=== PATIENT | male | born 1950 | race Caucasian/White ===

== ENCOUNTER → 2016-05-19 | Day surgery (SDC) | payer OTHER ==
[~2016-05-19] VITALS: Ht 177.8 cm; Wt 90.4 kg
[~2016-05-19] MED LIST: *ENALAPRILAT 1.25 MG/ML VIAL PERIprocedural Use ONLY ONE; *LABETALOL HCL 100 MG/20 ML VIAL PERIprocedural Use ONLY ONE; *morphine SULFATE 8 MG/ML PERIprocedure ONLY ONE; ASPI1TAB69 PO; ASPIRIN EC 81 MG TABEC PO SCH; ATOR20TA15 PO; ATROPINE SULFATE 1 MG/ML VIAL IV PUSH PRN; CEPH500C PO; CILO100T PO; CLOPIDOGREL 300 MG TAB PO ONE; CLOPIDOGREL 75 MG TAB PO SCH; CYCL1TAB29 PO; DO NOT ADM ANY ANTICOAGULANT DRUGS XX PRN; ENALAPRILAT 1.25 MG/ML VIAL IV PRN; FAMOTIDINE 20 MG/2 ML VIAL ONE; FISH1000 PO; GABA300C5 PO; HEPARIN SODIUM - IV 10,000 UNITS/10 ML VIAL ONE; HOLD GLUCOPHAGE, GLUCOPHAGE XR, AND AVANDAMET XX PRN; INSULIN HUMAN REGULAR 1,000 UNITS/10 ML VIAL SQ PRN; IOHEXOL 300 MG/ML 50 ML BTL (for RAD DIAG) ONE; LABETALOL HCL 100 MG/20 ML VIAL IVP PRN; LACTATED RINGER'S 1000 ML IV SCH; LIDOCAINE HCL 1% 50 ML VIAL INFIL PRN; LISI40TA PO; LISINOPRIL 20 MG TAB PO ONE; LORazepam 2 MG/ML VIAL IVP PRN; METF500T PO; METOCLOPRAMIDE HCL 10 MG/2 ML VIAL IVS PRN; METOPROLOL TARTRATE 25 MG TAB PO PRN; MIDAZOLAM HCL 2 MG/2 ML VIAL ONE; MULTTAB67 PO; ONDANSETRON HCL 4 MG/2 ML VIAL IV PRN; POTASSIUM CHLORIDE 20 MEQ CONTROLLED RELEASE TAB PO PRN; PROPOFOL 200 MG/20 ML AMP IV ONE; PROTAMINE SULFATE 50 MG/5 ML VIAL ONE; SODIUM CHLOR 0.9% 250 ML IV PRN; SODIUM CHLORID 0.9% 500 ML INJ 500 ML IV ONE; SODIUM CHLORID 0.9% 500 ML IV SCH; SODIUM CHLORIDE 0.9% 1000 ML @ 125 ML/HR IV SCH; SODIUM CHLORIDE 5 ML FLUSH BID IVF SCH; SODIUM CHLORIDE 5 ML FLUSH PRN IVF; SODIUM NITROPRUSSIDE 50 MG/250 ML D5W IV SCH; UMEC1AER INH; ceFAZolin 1,000 MG/NS 100 ML IV SCH; cloNIDine HCL 0.1 MG TAB PO PRN; oxyCODONE/ACETAMINOPHEN 5 MG/325 MG TAB PO PRN
[2016-05-19 06:33] VITALS: BP 171/85; PULSE 80; RESP 20; TEMP 97.7; O2SAT 94
[2016-05-19 06:42] LABS: AUTOMATED NEUTROPHIL # 6.8 TH/MM3 (1.8-7.7); BASOPHIL # 0.1 TH/MM3 (0-0.2); BASOPHIL % 0.9 % (0.0-2.0); EOSINOPHIL % 8.6 % (0.0-4.0); HEMATOCRIT 37.8 % (39.0-51.0); HEMO FLAGS DIFF FINAL; LYMPH % 20.3 % (9.0-44.0); LYMPHOCYTE # 2.4 TH/MM3 (1.0-4.8); MEAN CELL VOLUME 98.7 FL (80.0-100.0); MEAN CORPUSCULAR HEMOGLOBIN 33.5 PG (27.0-34.0); MEAN CORPUSCULAR HGB CONC 33.9 % (32.0-36.0); MONO % 13.5 % (0.0-8.0); NEUT % 56.7 % (16.0-70.0); PLATELET COUNT 517 TH/MM3 (150-450); RED BLOOD COUNT 3.84 MIL/MM3 (4.50-5.90); RED CELL DISTRIBUTION WIDTH 12.6 % (11.6-17.2)
[2016-05-19 06:44] LABS: INTERNATIONAL NORMALIZED RATIO 0.9 RATIO
[2016-05-19 06:54] LABS: BICARBONATE 21.3 MEQ/L (21.0-32.0); POTASSIUM 4.2 MEQ/L (3.5-5.1)
[2016-05-19] MEDS: HEPARIN SODIUM - SQ 10,000 UNITS/ML VIAL ONE ×2 (09:09→09:26)
[2016-05-19] MEDS: BUPIVACAINE/EPINEPHRINE 0.5% 50 ML VIAL ONE ×2 (09:09→09:25)
[2016-05-19 17:00] VITALS: TEMP 97.6
[2016-05-19 17:35] VITALS: BP 178/71; PULSE 69; RESP 20; O2SAT 94
--- NOTE | 2016-05-19 20:54 | EKG ---
Date Performed: 05/19/2016 Time Performed: 06:58:03 PTAGE: 66 years EKG: Sinus rhythm WITH SINUS ARRHYTHMIA NORMAL ECG NO PREVIOUS TRACING DOCTOR: Mason Gutierrez Interpretating Date/Time 05/19/2016 20:52:47
--- NOTE | 2016-05-24 20:21 | MP ---
cc: MARIN VOGEL D.O., JAMES DATE OF SURGERY: 05/19/2016. PREOPERATIVE DIAGNOSIS: Severely disabling bilateral lower extremity ischemia. POSTOPERATIVE DIAGNOSIS: Severely disabling bilateral lower extremity ischemia. OPERATIVE PROCEDURE PERFORMED: 1. C02 angiogram. 2. Right external iliac percutaneous balloon angioplasty and stent placement. SURGEON: Deshawn Modi M.D. HOME CARE ASSOCIATE: RUI Montesinos. ANESTHESIA: Local MAC DESCRIPTION OF THE PROCEDURE: With the patient in the supine position and under IV sedation the lower abdomen, both groins and thighs were prepped with Betadine and draped in a sterile fashion. One gram of Ancef was administered intravenously, and following a protocol time-out, the skin and subcutaneous tissue directly overlying proposed right common femoral access site was infiltrated with 0.5% Marcaine with epinephrine. Utilizing ultrasound guidance, an 18 gauge needle was guided into the right mid common femoral lumen, retrograde approach. A J-wire was navigated under fluoroscopic guidance into the iliac artery. A 5-Taiwanese hemostatic sheath was deployed over the J-wire. Utilizing CO2 as contrast injected through the sheath side-arm in conjunction with digital C-arm fluoroscopic imaging, angiographic evaluation was accomplished. 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 An Advantage guidewire/Quick-Cross catheter combination was successfully, intraluminally navigated through the external iliac occlusion and the guidewire and catheter negotiated into the subrenal aorta. Flush aortogram revealed wide patency of the right common iliac artery with complete occlusion of the external iliac at its origin. The occlusion extended approximately 60 mm distally. The internal iliac remained patent with moderate disease distal to its bifurcation. Also noted was a flush occlusion of the left common iliac artery at its origin. The left external and internal iliac arteries did not reconstitute but faint collateralization of the common femoral was apparent. The right external iliac occlusion was predilated with a 6 x 60 mm balloon inflated to 8 atmospheres. This was followed by deployment of an 8 x 60 mm self-expanding Medtronic stent which was postdilated with an 8 x 60 mm balloon. Completion angiogram revealed wide patency of the right iliac system with no significant residual stenosis. At this point, angiographic evaluation of the right infrainguinal area was completed. This revealed no significant disease within the right superficial femoral artery, popliteal or tibial vessels. No attempt was made to endovascularly revascularize the TAS C-V left iliac occlusion. Instead, my plan is to return the patient for open exposure of the left common femoral artery at which time a brief attempt will be made to retrogradely cross the left iliac occlusion. I doubt this will be successful and if it is unsuccessful, we will plan on concomitant [id number] femoral-femoral bypass. The patient returned to the recovery room in stable condition. It should be noted that during the procedure, the 5-Taiwanese hemostatic sheath was exchanged for a 6-Taiwanese right-tip sheath. At the conclusion of procedure, the 6-Taiwanese sheath was secured with a skin suture and left in place. Also, it should be noted that prior to the balloon angioplasty of the right iliac occlusion, the patient received heparin, 5000 units and ACT measured above 250. Heparin was not reversed at the conclusion of procedure. MD CONOR Castañeda/SILVIA /4:15 PM /8:12 PM
== END | disposition home or self-care (01) ==
LOC: HCVO 05:47
PROVIDERS: ATTEND Surgery Vascular Surgery
DX: I70.213 Atherosclerosis of native arteries of extremities with intermittent claudication, bilateral legs (principal); I12.9 Hypertensive chronic kidney disease with stage 1 through stage 4 chronic kidney disease, or unspecified chronic kidney disease; N18.3 Chronic kidney disease, stage 3 (moderate); J44.9 Chronic obstructive pulmonary disease, unspecified; E11.9 Type 2 diabetes mellitus without complications
CPT/HCPCS: 00880; 36415; 37221; 75716; 76937; 80048; 85025; 85347; 85610; 85730; 86850; 86900; 86901; 93005; C1725; C1769; C1876; C1887; J0690; J1644; J2250; J2270; J2720; J3010; J7030; J7040; J7120; Q9967

== ENCOUNTER 2016-06-21 11:00 | Inpatient (IN) | payer OTHER, MEDICARE ==
[~2016-06-21] VITALS: Ht 177.8 cm; Wt 90.9 kg
[~2016-06-21 11:00] MED LIST changes: -*ENALAPRILAT 1.25 MG/ML VIAL PERIprocedural Use ONLY ONE; -*LABETALOL HCL 100 MG/20 ML VIAL PERIprocedural Use ONLY ONE; -*morphine SULFATE 8 MG/ML PERIprocedure ONLY ONE; -ASPIRIN EC 81 MG TABEC PO SCH; -ATROPINE SULFATE 1 MG/ML VIAL IV PUSH PRN; -CEPH500C PO; -CLOPIDOGREL 300 MG TAB PO ONE; -CLOPIDOGREL 75 MG TAB PO SCH; -DO NOT ADM ANY ANTICOAGULANT DRUGS XX PRN; -ENALAPRILAT 1.25 MG/ML VIAL IV PRN; -FAMOTIDINE 20 MG/2 ML VIAL ONE; -HEPARIN SODIUM - IV 10,000 UNITS/10 ML VIAL ONE; -HOLD GLUCOPHAGE, GLUCOPHAGE XR, AND AVANDAMET XX PRN; -INSULIN HUMAN REGULAR 1,000 UNITS/10 ML VIAL SQ PRN; -IOHEXOL 300 MG/ML 50 ML BTL (for RAD DIAG) ONE; -LABETALOL HCL 100 MG/20 ML VIAL IVP PRN; -LACTATED RINGER'S 1000 ML IV SCH; -LIDOCAINE HCL 1% 50 ML VIAL INFIL PRN; -LISINOPRIL 20 MG TAB PO ONE; -LORazepam 2 MG/ML VIAL IVP PRN; -METOCLOPRAMIDE HCL 10 MG/2 ML VIAL IVS PRN; -METOPROLOL TARTRATE 25 MG TAB PO PRN; -MIDAZOLAM HCL 2 MG/2 ML VIAL ONE; -ONDANSETRON HCL 4 MG/2 ML VIAL IV PRN; -POTASSIUM CHLORIDE 20 MEQ CONTROLLED RELEASE TAB PO PRN; -PROPOFOL 200 MG/20 ML AMP IV ONE; -PROTAMINE SULFATE 50 MG/5 ML VIAL ONE; -SODIUM CHLOR 0.9% 250 ML IV PRN; -SODIUM CHLORID 0.9% 500 ML INJ 500 ML IV ONE; -SODIUM CHLORID 0.9% 500 ML IV SCH; -SODIUM CHLORIDE 0.9% 1000 ML @ 125 ML/HR IV SCH; -SODIUM CHLORIDE 5 ML FLUSH BID IVF SCH; -SODIUM CHLORIDE 5 ML FLUSH PRN IVF; -SODIUM NITROPRUSSIDE 50 MG/250 ML D5W IV SCH; -ceFAZolin 1,000 MG/NS 100 ML IV SCH; -cloNIDine HCL 0.1 MG TAB PO PRN; -oxyCODONE/ACETAMINOPHEN 5 MG/325 MG TAB PO PRN
[2016-07-01] VITALS (8 sets, daily range): BP systolic 143–148; BP diastolic 78–94; PULSE 62–72; RESP 18–20; TEMP 97.4–98.1; O2SAT 96–100
[2016-07-01] MEDS: LACTATED RINGER'S 1000 ML IV SCH (06:45)
[2016-07-01] MEDS ORDERED: SODIUM CHLORID 0.9% 500 ML IV SCH (06:45)
[2016-07-01] MEDS ORDERED: ceFAZolin 1,000 MG/NS 100 ML IV SCH ×2 (06:45)
[2016-07-01] MEDS ORDERED: INSULIN HUMAN REGULAR 1,000 UNITS/10 ML VIAL SQ PRN (07:00)
[2016-07-01] MEDS ORDERED: METOPROLOL TARTRATE 25 MG TAB PO PRN (07:00)
[2016-07-01 07:37] LABS: AUTOMATED NEUTROPHIL # 5.8 TH/MM3 (1.8-7.7); BASOPHIL # 0.1 TH/MM3 (0-0.2); BASOPHIL % 1.2 % (0.0-2.0); EOSINOPHIL # 0.8 TH/MM3 (0-0.4); EOSINOPHIL % 8.1 % (0.0-4.0); HEMO FLAGS DIFF FINAL; LYMPH % 18.2 % (9.0-44.0); LYMPHOCYTE # 1.8 TH/MM3 (1.0-4.8); MEAN CELL VOLUME 97.8 FL (80.0-100.0); MEAN CORPUSCULAR HEMOGLOBIN 33.3 PG (27.0-34.0); MONO % 12.3 % (0.0-8.0); NEUT % 60.2 % (16.0-70.0); PLATELET COUNT 433 TH/MM3 (150-450); RED BLOOD COUNT 3.47 MIL/MM3 (4.50-5.90); RED CELL DISTRIBUTION WIDTH 12.6 % (11.6-17.2); WHITE BLOOD COUNT 9.7 TH/MM3 (4.0-11.0)
[2016-07-01 07:53] LABS: APTT (PATIENT) 27.1 SEC (24.3-30.1); INTERNATIONAL NORMALIZED RATIO 0.9 RATIO; PROTHROMBIN TIME - PATIENT 10.1 SEC (9.8-11.6)
[2016-07-01 07:56] LABS: BICARBONATE 23.1 MEQ/L (21.0-32.0)
[2016-07-01 07:58] LABS: POTASSIUM 4.6 MEQ/L (3.5-5.1)
[2016-07-01] MEDS ORDERED: HEPARIN SODIUM - IV 10,000 UNITS/10 ML VIAL ONE (08:26)
[2016-07-01] MEDS ORDERED: HEPARIN SODIUM - SQ 10,000 UNITS/ML VIAL ONE (08:26)
[2016-07-01] MEDS ORDERED: BUPIVACAINE/EPINEPHRINE 0.5% PF 30 ML VIAL ONE (08:26)
[2016-07-01] MEDS ORDERED: PROTAMINE SULFATE 50 MG/5 ML VIAL ONE (08:27)
[2016-07-01] MEDS ORDERED: IOHEXOL 300 MG/ML 100 ML BTL (for Rad CT) IV ONE (12:00)
[2016-07-01] MEDS ORDERED: PHENYLEPH/NS 1000 MCG/10 ML SYR IV ONE (12:00)
[2016-07-01] MEDS ORDERED: SODIUM CHLORID 0.9% 500 ML INJ 500 ML IV ONE (12:00)
[2016-07-01] MEDS ORDERED: ePHEDrine/NS 25 MG/5 ML SYR IV ONE (12:00)
[2016-07-01] MEDS ORDERED: PROPOFOL 200 MG/20 ML AMP IV ONE (12:00)
[2016-07-01] MEDS ORDERED: NORMOSOL R INJ 2,000 ML IV ONE (12:00)
[2016-07-01] MEDS ORDERED: ONDANSETRON HCL 4 MG/2 ML VIAL IV PUSH ONE (12:00)
[2016-07-01] MEDS ORDERED: NEOSTIGMINE 3 MG/3 ML SYR IV ONE (12:00)
[2016-07-01] MEDS ORDERED: fentaNYL CITRATE 250 MCG/5 ML AMP ONE (12:19)
[2016-07-01] MEDS ORDERED: SODIUM CHLORIDE 0.9% FLUSH 5 ML FLUSH IV FLUSH PRN (12:30)
[2016-07-01] MEDS ORDERED: POTASSIUM CHLOR 20 MEQ/100 ML x 1 BAG IV PRN (12:30)
[2016-07-01] MEDS ORDERED: MAGNESIUM SULFATE 1 GM/100 ML IV PRN (12:30)
[2016-07-01] MEDS ORDERED: MORPHINE SULFATE 4 MG/ML INJ IV PRN (12:30)
[2016-07-01] MEDS ORDERED: DEXTROSE 50% IN WATER 50 ML VIAL(D50) IV PUSH PRN (12:30)
[2016-07-01] MEDS ORDERED: GLUCAGON 1 MG/ML VIAL OTHER PRN (12:30)
[2016-07-01] MEDS ORDERED: POTASSIUM PHOSPHATE 21 MMOL/NS 250 ML IV PRN ×2 (12:30)
[2016-07-01] MEDS ORDERED: POTASSIUM CHLOR 20 MEQ 100 ML x 2 BAGS IV PRN (12:30)
[2016-07-01] MEDS ORDERED: DO NOT ADM ANY ANTICOAGULANT DRUGS XX PRN (12:30)
[2016-07-01] MEDS: MEDIUM DOSE INSULIN NOVOLIN REGULAR SUPPLEMENTAL SCALE SQ SCH ×2 (16:00→21:00)
[2016-07-01] MEDS: SODIUM CHLORIDE 0.9% FLUSH 5 ML FLUSH IV FLUSH SCH (22:30)
--- NOTE | 2016-07-01 22:56 | EKG ---
Date Performed: 07/01/2016 Time Performed: 06:55:55 PTAGE: 66 years EKG: Sinus rhythm NORMAL ECG PREVIOUS TRACING : 05/19/2016 06.58 DOCTOR: Patrick De La Rosa Interpretating Date/Time 07/01/2016 22:55:43
[2016-07-02] VITALS (14 sets, daily range): BP systolic 128–164; BP diastolic 80–94; PULSE 58–88; RESP 18–20; TEMP 97.6–97.8; O2SAT 96–100
[2016-07-02] MEDS: MEDIUM DOSE INSULIN NOVOLIN REGULAR SUPPLEMENTAL SCALE SQ SCH ×2 (06:27→10:43)
[2016-07-02] MEDS: LACTATED RINGER'S 1000 ML IV SCH (06:45)
[2016-07-02] MEDS: SODIUM CHLORIDE 0.9% FLUSH 5 ML FLUSH IV FLUSH SCH (09:00)
[2016-07-02] MEDS ORDERED: ATORVASTATIN 20 MG TAB PO SCH (10:30)
[2016-07-02] MEDS ORDERED: ASPIRIN EC 81 MG TABEC PO SCH (10:30)
[2016-07-02] MEDS ORDERED: metFORMIN HCL 500 MG TAB PO SCH (10:30)
[2016-07-02] MEDS ORDERED: LISINOPRIL 20 MG TAB PO SCH (10:30)
[2016-07-02] MEDS ORDERED: MULTIVITAMIN TAB PO SCH (10:30)
[2016-07-02] MEDS ORDERED: UMECLIDINIUM 62.5 MCG/VILANTEROL 25 MCG INHALER INH SCH (11:00)
[2016-07-02] MEDS ORDERED: ceFAZolin 1,000 MG/NS 100 ML IV ONE ×2 (12:45)
[2016-07-02] MEDS ORDERED: CEPH500C PO (13:19)
--- NOTE | 2016-07-03 09:39 | MP ---
cc: GIULIA MODI M.D. DATE OF SURGERY: 07/01/2016 PREOPERATIVE DIAGNOSIS: Disabling left lower extremity ischemia. Exposed recent right external iliac stent placement. POSTOPERATIVE DIAGNOSIS: Disabling left lower extremity ischemia. Exposed recent right external iliac stent placement. OPERATION: Right to left femoral-femoral bypass. Intraoperative arteriogram with attempted crossing of the left iliac occlusion. SURGEON Giulia Modi MD. RUBBER ROLLER GRINDER OPERATOR: RUI Montesinos. ANESTHESIA: General endotracheal anesthesia/local. DESCRIPTION OF OPERATIVE PROCEDURE: With the patient in the supine position general endotracheal anesthesia was induced, the lower abdomen, groins and thighs prepped with Betadine and draped in a sterile fashion. One gram of Ancef was administered intravenously and following a protocol time-out, the skin and subcutaneous tissue within the left inguinal area preemptively infiltrated with 0.5% Marcaine with epinephrine. An oblique 3 cm incision was performed along Alex's lines within the left inguinal skin crease through which the common, superficial and profunda femoral arteries were circumferentially mobilized. The mid common femoral lumen was accessed with an 18 gauge needle and a J-wire advanced into the left external iliac artery. The needle was exchanged for a 5-Serbian hemostatic sheath. Retrograde injection of diluted contrast through the sheath side-arm in conjunction with digital C-arm fluoroscopic imaging confirmed occlusion of the left external iliac artery at the left external iliac common femoral junction. The common, superficial and profunda femoral arteries reconstituted the pelvic collaterals and were relatively non-diseased throughout the entire course. The brief attempt was made to retrogradely cross the left iliac occlusion with an Advantage guidewire. However, after extensive resistance the guidewire passage concluded successful crossing. Thus I proceeded with the planned right to left femoral-femoral bypass. The skin and subcutaneous tissue within the right inguinal area was infiltrated with 0.5% Marcaine with epinephrine. An oblique 3 cm incision was performed along Alex's lines within the right inguinal skin crease through which the right common, superficial and profunda femoral arteries were circumferentially mobilized. A subcutaneous suprapubic tunnel was dissected between the two femoral exposure incisions. The patient was systemically heparinized with 5000 units. The left common, superficial and profunda femoral arteries were occluded with double loop vessel loops. A vertical 2-cm arteriotomy was performed along the anterior surface of the mid left common femoral. A 6-mm reinforced Propaten PTFE graft was spatulated on end and anastomosed end-to-side to the left femoral arteriotomy with continuous 6-0 Prolene. A graft was tunneled through the suprapubic subcutaneous tract. The left limb of the graft was clamped with an angled DeBakey vascular clamp and perfusion restored within the [place] femoral artery by release of the double loop vessel loop. The right common, superficial and profunda femoral arteries were occluded with double loop vessel loops. A vertical 2-cm arteriotomy was performed along the anteromedial surface of the mid common femoral. The PTFE graft was spatulated on end and anastomosed end-to-side to the femoral arteriotomy with continuous 6-0 Prolene. Prior to placement of the final sutures the arterial and graft lumens were appropriately flushed, final sutures placed and tied, and pulsatile flow restored into the [place] right common femoral as well as into the PTFE graft as documented by significant augmentation of Doppler signal distal to the left femoral anastomosis. Heparin was reversed with 200 mg of protamine. Strict hemostasis was assured. The two groin incisions were closed with three separate deep layers of continuous 4-0 Monocryl and skin reapproximated with continuous subcuticular 5-0 Monocryl, reinforced with Steri-Strips and covered with sterile gauze. Instrument, needle, sponge count correct x2. There were no operative complications. The patient returned to the recovery room in stable condition having tolerated the procedure well. MD CONOR Castañeda/LINDSEY /4:39 PM /9:26 AM
== END 2016-07-02 14:03 | disposition home or self-care (01) | DRG 254 ==
LOC: HSDI 07-01 06:24 → HCIN 07-01 16:34
PROVIDERS: ADMIT Surgery Vascular Surgery; ATTEND Surgery Vascular Surgery
PROC: 041K0JJ Bypass Right Femoral Artery to Left Femoral Artery with Synthetic Substitute, Open Approach (ICD-10-PCS; principal; 2016-07-01 08:51)
PROC: B41G1ZZ Fluoroscopy of Left Lower Extremity Arteries using Low Osmolar Contrast (ICD-10-PCS; 2016-07-01 08:51)
DX: I73.9 Peripheral vascular disease, unspecified (principal); N18.3 Chronic kidney disease, stage 3 (moderate); I12.9 Hypertensive chronic kidney disease with stage 1 through stage 4 chronic kidney disease, or unspecified chronic kidney disease; I99.8 Other disorder of circulatory system; E78.5 Hyperlipidemia, unspecified; E11.9 Type 2 diabetes mellitus without complications; Z87.891 Personal history of nicotine dependence
CPT/HCPCS: 75710; 80048; 82948; 85025; 85610; 85730; 86850; 86900; 86901; 93005; C1768; C1769; J0690; J1644; J2370; J2405; J2710; J2720; J3010; J7040; J7120; Q9967